=== PATIENT | female | born 1975 | race Caucasian/White ===

== ENCOUNTER 2016-07-07 05:26 | Emergency (ER) | payer BC ==
[~2016-07-07] VITALS: Ht 154.9 cm; Wt 74.5 kg
[~2016-07-07 05:26] MED LIST: HYDR-3498 PO
[2016-07-07 05:41] VITALS: Ht 154.9 cm; Wt 74.5 kg
[2016-07-07] MEDS ORDERED: IBUP-1542 PO (06:37)
[2016-07-07] MEDS ORDERED: CETI10CA PO (06:37)
[2016-07-07] MEDS ORDERED: BENZ100C70 PO (06:37)
--- NOTE | 2016-07-07 06:41 | ERD ---
ER Documentation Chief Complaint Date/Time DATE: 07/07/16 TIME: 06:[address] and fever for 3 days HPI Patient is a 41-year-old female who presents to the ED with sore throat and runny nose for 4 days. She states that she developed a cough x 1 day. She states that she has had a productive cough at home. She also states that her has been sick with similar symptoms. She denies fever or chills, states that she had a fever 4 days ago and none since. She denies shortness of breath or difficulty breathing. Denies chest pain, abdominal pain, nausea, vomiting or diarrhea. Denies constipation. Denies headache, dizziness, neck pain or stiffness. She is not taking any medications for her symptoms. She denies difficulty swallowing but does state that she has pain with swallowing. Tolerating food and fluids well. No other complaints. ROS All systems reviewed and are negative except as per history of present illness. Medications Home Meds Active Scripts Ibuprofen* (Motrin*) 600 Mg Tab, 600 MG PO Q6, #30 TAB Prov:ARASELI JAVIER PA-C 07/07/16 Cetirizine Hcl* (Zyrtec*) 10 Mg Capsule, 10 MG PO DAILY, #30 TAB.CHEW Prov:ARASELI JAVIER PA-C 07/07/16 Benzonatate* (Tessalon Perle*) 100 Mg Capsule, 100 MG PO Q8H Y for COUGH for 14 Days, CAP Prov:ARASELI JAVIER PA-C 07/07/16 Hydrocodone Bit-Acetaminophen* ([place]*) 5-325 Mg Tab, 1 TAB PO Q6 Y for PAIN, # 7 TAB Prov:PATRICIA POLANCO PA-C 12/17/15 Allergies Allergies: Coded Allergies: No Known Allergy (Unverified , 12/17/15) PMhx/Soc History of Surgery: No Anesthesia Reaction: No Hx Neurological Disorder: No Hx Respiratory Disorders: No Hx Cardiac Disorders: No Hx Psychiatric Problems: No Hx Miscellaneous Medical Probl: Yes (GASTRITIS) Hx Alcohol Use: No Hx Substance Use: No Hx Tobacco Use: No FmHx Family History: No coronary disease, No diabetes, No other Physical Exam Vitals Vital Signs Date Time Temp Pulse Resp B/P Pulse Ox O2 Delivery O2 Flow Rate FiO2 07/07/16 05:41 98.9 85 18 130/72 97 Physical Exam GENERAL: Well-developed, well-nourished female. Appears in no acute distress. HEAD: Normocephalic, atraumatic. EYES: Pupils are equally reactive bilaterally. EOMs grossly intact. No conjunctival erythema. ENT: Moist mucous membranes. No uvula deviation. No kissing tonsils. No exudates. NECK: Supple. No lymphadenopathy or thyromegaly. No meningismus. negative kernig. negative brudinski. LUNG: Clear to auscultation bilaterally. No rhonchi, wheezing, rales or coarse breath sounds. HEART: Regular rate and rhythm. No murmurs, rubs or gallops. SKIN: Normal color. Warm and dry. No rashes or lesions. Capillary refill < 2 seconds Procedures/MDM ER COURSE: I kept the patient and/or family informed of laboratory and diagnostic imaging results throughout the emergency room course. MEDICAL DECISION MAKING: This is a 41 year old female who presents with sore throat, cough, runny nose. Vital signs were reviewed. Patient is afebrile. Patient is not hypoxic. Patient is not toxic or ill-appearing. Patient has URI of viral etiology. Low suspicion for pneumonia, PE, pneumothorax, ACS, epiglottitis, obstruction, TB, pertussis, meningitis, sepsis. Patient's lung examination is within normal limits and I do not think patient needs an x-ray today. Patient does not show signs of respiratory distress. She is speaking in full sentences. Low suspicion for peritonsillar abscess, strep pharyngitis, mononucleosis, dental abscess. DISCHARGE: At this time, patient is stable for discharge and outpatient management with no new complaints during the ER course. Patient was sent home with Lu Perera Zyrtec. Patient will be discharged home with instructions to recheck for new or worsening symptoms such as fever, nausea, weakness, LOC and to follow up with primary care in the next 1-2 days. Patient was advised to return to the ER for any new or worsening symptoms. Plan was discussed and patient and/ or family understands and agrees. Home instructions were given. Departure Diagnosis: Primary Impression: URI, acute Condition: Stable Patient Instructions: Uri, Viral, No Abx (Adult) Additional Instructions: Manolo al doctor MAANA y meera azucena NORM PARA DENTRO DE 1-2 PARSON.Dgale a la secretaria que nosotros le instruimos hacer esta norm.Avise o llame si rdz condicin se empeora antes de la norm. Regresa aqui si peor o no mejor. ARASELI JAVIER PA-C Jul 07, 2016 06:41
== END 2016-07-07 07:05 | disposition home or self-care (01) ==
LOC: FTE 05:26
DX: J06.9 Acute upper respiratory infection, unspecified (principal)
CPT/HCPCS: 99284

== ENCOUNTER 2016-12-06 14:33 | Emergency (ER) | payer BC ==
[~2016-12-06] VITALS: Ht 157.5 cm; Wt 74.0 kg
[~2016-12-06 14:33] MED LIST changes: +BENZ100C70 PO; +CETI10CA PO; +IBUP-1542 PO
[2016-12-06 14:35] VITALS: Ht 157.5 cm; Wt 74.0 kg
[2016-12-06] MEDS ORDERED: HYDROCODONE/APAP (5/325) TAB PO ONE (16:00)
[2016-12-06] MEDS ORDERED: IBUPROFEN 600 MG TAB PO ONE (16:00)
--- NOTE | 2016-12-06 16:28 | RADRPT ---
PROCEDURE: US Pelvis CLINICAL INDICATION: pelvic pain TECHNIQUE: Multiple sonographic images of the pelvis were obtained utilizing a transabdominal and endovaginal technique. The images were reviewed on a PACS workstation. COMPARISON: None. LMP: 12/04/2016 FINDINGS: The uterus measures 9.6 x 5.2 x 5.4 cm. The endometrial echo complex measures 15 mm in thickness. No discrete lesion is seen. The right ovary measures 4.3 x 3.9 x 4.1 cm. The left ovary measures 2.9 x 1.8 x 1.8 cm. There is no rmal vascular flow in both ovaries. There is a 3 cm cystic lesion with posterior acoustic enhancement and uniform low level internal ech oes in the right ovary which may be an endometrioma or hemorrhagic/corpus luteal cyst. It is not as sociated with significant vascular flow. There is trace free fluid in the right adnexa. IMPRESSION: 3 cm complex cystic lesion in the right ovary may be an endometrioma or hemorrhagic/corpus luteal cy st. Follow-up ultrasound in 6-12 weeks is recommended for further evaluation. The endometrium is top - normal in thickness, likely due to stage of the menstrual cycle. It can be reevaluated on follow-up ultrasound. RPTAT: EE Physician Zen Date Time Electronically viewed and signed by Physician Zen on 12/06/2016 16:27 /
[2016-12-06] MEDS ORDERED: HYDR-906 PO (16:46)
[2016-12-06] MEDS ORDERED: IBUP-1542 PO (16:47)
[2016-12-06 16:50] LABS: URINE BLOOD (Dip) POC 3+ (NEGATIVE)
--- NOTE | 2016-12-06 17:09 | ERD ---
ER Documentation Chief Complaint Date/Time DATE: 12/06/16 TIME: 17:06 Chief Complaint 6/10 pelvic pain x 30 minutes HPI This is a 41-year-old female presents to the ER with right-sided lower pelvic pain that started an hour ago. Patient states that pain is severe and constant sharp. She denies any nausea vomiting or diarrhea. She denies any fevers or chills. Patient is currently on her menstrual period, however she states that she does not have any cramps. She denies any vaginal discharge. ROS 12 point review of systems was done, all negative except per HPI. Medications Home Meds Active Scripts Ibuprofen* (Motrin*) 600 Mg Tab, 600 MG PO Q6, #30 TAB Prov:NANNETTE MOORE 12/06/16 Hydrocodone/Acetaminophen ([place] 5-325 Tablet) 1 Each Tablet, 1 TAB PO Q6H Y for PAIN, #20 TAB Prov:NANNETTE MOORE 12/06/16 Ibuprofen* (Motrin*) 600 Mg Tab, 600 MG PO Q6, #30 TAB Prov:ARASELI JAVIER PA-C 07/07/16 Cetirizine Hcl* (Zyrtec*) 10 Mg Capsule, 10 MG PO DAILY, #30 TAB.CHEW Prov:ARASELI JAVIER PA-C 07/07/16 Benzonatate* (Tessalon Perle*) 100 Mg Capsule, 100 MG PO Q8H Y for COUGH for 14 Days, CAP Prov:ARASELI JAVIER PA-C 07/07/16 Hydrocodone Bit-Acetaminophen* ([place]*) 5-325 Mg Tab, 1 TAB PO Q6 Y for PAIN, # 7 TAB Prov:PATRICIA POLANCO PA-C 12/17/15 Allergies Allergies: Coded Allergies: cephalexin (Verified Allergy, Unknown, 12/06/16) PMhx/Soc History of Surgery: No Anesthesia Reaction: No Hx Neurological Disorder: No Hx Respiratory Disorders: No Hx Cardiac Disorders: No Hx Psychiatric Problems: No Hx Alcohol Use: No Hx Substance Use: No Hx Tobacco Use: No Physical Exam Vitals Vital Signs Date Time Temp Pulse Resp B/P Pulse Ox O2 Delivery O2 Flow Rate FiO2 12/06/16 14:35 99.0 69 18 164/87 99 Physical Exam GENERAL: The patient is well developed and appropriate for usual state of health , in no apparent distress. HEENT: Atraumatic. CHEST: Clear to auscultation bilaterally. There are no rales, wheezes or rhonchi. HEART: Regular rate and rhythm. No murmurs, clicks, rubs or gallops. ABDOMEN: Soft, nontender and nondistended. Good bowel sounds. No rebound or guarding. No gross peritonitis. No gross organomegaly or masses. No Barrow sign or McBurney point tenderness. Pelvic pain To palpation BACK: No midline or flank tenderness. NEURO: Alert and oriented. Results 24 hrs Laboratory Tests Test 12/06/16 16:57 Bedside Urine pH (LAB) 7.5 Bedside Urine Protein (LAB) 1+ Bedside Urine Glucose (UA) Negative Bedside Urine Ketones (LAB) 2+ Bedside Urine Blood 3+ Bedside Urine Nitrite (LAB) Negative Bedside Urine Leukocyte Esterase (L Negative Current Medications Medications (Trade) Dose Ordered Sig/Mp Route PRN Reason Start Time Stop Time Status Last Admin Dose Admin Acetaminophen/ Hydrocodone Bitart ([place] (5/325)) 1 tab ONCE ONCE PO 12/06/16 16:00 12/06/16 16:01 DC 12/06/16 16:46 Ibuprofen (Motrin) 600 mg ONCE ONCE PO 12/06/16 16:00 12/06/16 16:01 DC 12/06/16 16:46 [place] [id number] Radiology Main Line: [phone] DIAGNOSTIC IMAGING REPORT Patient: BRADY SPENCER : 1975 Age: 41 Sex: F [id number] DOS: 12/06/16 0000 Ordering MD: NANNETTE MOORE PA-C Location: E Room/Bed: PROCEDURE: US Pelvis CLINICAL INDICATION: pelvic pain TECHNIQUE: Multiple sonographic images of the pelvis were obtained utilizing a transabdominal and endovaginal technique. The images were reviewed on a PACS workstation. COMPARISON: None. LMP: 12/04/2016 FINDINGS: The uterus measures 9.6 x 5.2 x 5.4 cm. The endometrial echo complex measures 15 mm in thickness. No discrete lesion is seen. The right ovary measures 4.3 x 3.9 x 4.1 cm. The left ovary measures 2.9 x 1.8 x 1.8 cm. There is normal vascular flow in both ovaries. There is a 3 cm cystic lesion with posterior acoustic enhancement and uniform low level internal echoes in the right ovary which may be an endometrioma or hemorrhagic/corpus luteal cyst. It is not associated with significant vascular flow. There is trace free fluid in the right adnexa. IMPRESSION: 3 cm complex cystic lesion in the right ovary may be an endometrioma or hemorrhagic/corpus luteal cyst. Follow-up ultrasound in 6-12 weeks is recommended for further evaluation. The endometrium is top - normal in thickness, likely due to stage of the menstrual cycle. It can be reevaluated on follow-up ultrasound. RPTAT: EE Christian Vasquez Physician Date Time Electronically viewed and signed by Christian Vasquez Physician on 12/06/2016 16:27 RA/ CC: NANNETTE MOORE Procedures/MDM Differential diagnosis includes but is not limited to appendicitis, hernia, UTI , constipation, ectopic , ovarian torsion, PID, Mittelschmerz, fibroid. This is a 31-year-old female presents to the ER with right-sided lower pelvic pain, patient does have an ovarian cyst. For ovarian torsion is low. Suspicion for acute abdomen is low as patient has been afebrile and does not have a history of fevers or chills. Patient does not have any abdominal pain on for. Patient's pain was controlled in the ER and she was comfortably sitting down waiting for her results. There is also no evidence of urinary tract infection, doubt pyelonephritis. I doubt tubo-ovarian abscess. Patient is to follow-up with her primary care doctor within 1-2 days and return to ER sooner if symptoms worsen. My medical decision making shared with the patient she understands and agrees with plan. Departure Diagnosis: Primary Impression: Ovarian cyst Condition: Stable Patient Instructions: Ovarian Cyst Additional Instructions: Call your primary care doctor TOMORROW for an appointment during the next 1-2 days.See the doctor sooner or return here if your condition worsens before your appointment time. NANNETTE MOORE Dec 06, 2016 17:09
[2016-12-06 17:15] VITALS: BP 144/82; PULSE 66; RESP 18
== END 2016-12-06 17:16 | disposition home or self-care (01) ==
LOC: FTE 14:33
DX: N83.201 Unspecified ovarian cyst, right side (principal)
CPT/HCPCS: 76830; 76856; 81003; 99284; Z7610

== ENCOUNTER 2017-06-05 13:52 | Emergency (ER) | END 2017-06-05 19:48 | disposition home or self-care (01) ==

== ENCOUNTER 2017-07-06 09:14 | Emergency (ER) | END 2017-07-06 13:10 | disposition home or self-care (01) ==